=== PATIENT | male | born 1965 | race Caucasian/White ===

== ENCOUNTER 2018-06-15 09:05 | Outpatient (CLI) | payer OTHER ==
--- NOTE | 2018-06-15 10:28 | RAD ---
PA AND LATERAL CHEST XRAY: DATE: 06/15/2018. HISTORY: Bronchitis. Shortness of breath for a couple of years. COMPARISON: None available. FINDINGS: Cardiac silhouette and pulmonary vasculature are within normal limits. There are linear densities se en at the left lung base which could be related to a combination of epicardial fat pad and atelectasi s. Lungs are otherwise clear. Mild degenerative changes are seen in the midthoracic spine. Vascula r calcification is seen in the thoracic aorta. IMPRESSION: Linear area of increased density at the left lung base which is thought to most likely be related to a combination of epicardial fat pad and mild volume loss. However, if there is concern for developin g pneumonia, a followup chest x-ray is recommended. POS: MILLIE
== END 2018-06-15 09:06 | disposition home or self-care (01) ==
LOC: BICRAD 09:05
PROVIDERS: ATTEND Internal Medicine
DX: J40 Bronchitis, not specified as acute or chronic (principal)
CPT/HCPCS: 71046

== ENCOUNTER 2019-12-10 11:24 | Emergency (ER) | payer SELFPAY ==
[2019-12-10] MEDS ORDERED: HYDROcodone/Acetaminophen 7.5/325 mg Tablet ONE (11:42)
--- NOTE | 2019-12-10 13:26 | RAD ---
LEFT HAND THREE VIEWS: History: Hand pain. Injury. FINDINGS: Carpals appear intact. There is a predominately transverse but mildly comminuted fracture involving the proximal shaft of th e first metacarpal with mild displacement. No other definite fractures seen. There are degenerative joint changes. IMPRESSION: Acute fracture involving the proximal phalanx of the thumb. POS: [facility]
--- NOTE | 2019-12-10 13:28 | RAD ---
RIGHT HAND THREE VIEWS: History: Injury FINDINGS: Deformity of the distal radius suggest old healed fracture. Degenerative changes in the carpals and at the carpal metacarpal joints. There is an acute mildly displaced fracture involving the base of the first metacarpal. Deformity of the fifth metacarpal indicates old healed fracture. Degenerative changes in the MCP and IP joints. IMPRESSION: 1. Evidence of acute mildly displaced fracture involving the base of the first metacarpal. 2. Deformity in the distal radius and fifth metacarpal are consistent with old healed fractures. POS: AGW
--- NOTE | 2019-12-10 13:31 | RAD ---
LEFT SHOULDER THREE VIEWS: History: Injury FINDINGS: No evidence of fracture or dislocation. AC joint normally aligned. IMPRESSION: No acute abnormality identified. POS: [facility]
== END 2019-12-10 15:01 | disposition home or self-care (01) ==
LOC: ERS 11:24
DX: S62.231A Other displaced fracture of base of first metacarpal bone, right hand, initial encounter for closed fracture (principal); S62.242A Displaced fracture of shaft of first metacarpal bone, left hand, initial encounter for closed fracture; Z87.891 Personal history of nicotine dependence; V89.2XXA Person injured in unspecified motor-vehicle accident, traffic, initial encounter
CPT/HCPCS: 26600

== ENCOUNTER 2020-01-05 08:34 | Emergency (ER) | payer SELFPAY ==
[2020-01-05 10:20] LABS: ALT (SGPT) 19 U/L (8-55); AST (SGOT) 25 U/L (5-34); Albumin 4.5 g/dL (3.5-5.0); Alkaline Phosphatase 88 U/L (40-110); Anion Gap 13 mmol/L (10-20); BUN (Urea Nitrogen) 12 mg/dL (8.4-25.7); CK (CPK) 699 U/L (30-200); Calc. Creatinine Clearance 0 mL/min (70-130); Calcium 9.4 mg/dL (7.8-10.44); Carbon Dioxide 26 mmol/L (22-29); Chloride 104 mmol/L (98-107); Estimated GFR-MDRD 65; Globulin 2.6 g/dL (2.4-3.5); Glucose 94 mg/dL (70-105); Potassium 3.4 mmol/L (3.5-5.1); Protein, Total 7.1 g/dL (6.0-8.3); Sodium 140 mmol/L (136-145)
--- NOTE | 2020-01-05 10:21 | RAD ---
TWO VIEWS RIGHT HUMEROUS: DATE: 01/05/2020. PROVIDED CLINICAL HISTORY: Pain status post injury. FINDINGS: No evidence for a fracture or other acute osseous abnormality. If there is persistent clinical lui rn, conservative management and followup imaging are advised. IMPRESSION: As above. POS: JONATHAN
--- NOTE | 2020-01-05 10:24 | RAD ---
RIGHT FOREARM 2 VIEWS: HISTORY: Forearm injury. COMPARISON: A 12/10/2019 exam. FINDINGS: A base of metacarpal fracture is again demonstrated. It was present on the previous exam. This is s lightly more displaced. Arthritic changes of the wrist are noted. IMPRESSION: 1. Slight increased displacement of the base of the 1st metacarpal fracture. 2. Old distal radial fracture. POS: JOSEPH
[2020-01-05] MEDS ORDERED: Adacel (T-DAP) 0.5 ML SYRINGE ONE (10:40)
--- NOTE | 2020-01-05 11:32 | CT ---
CT BRAIN: Date: 01/05/2020 PROVIDED CLINICAL HISTORY: Headache. COMPARISON: 01/22/2007. FINDINGS: The ventricular system is normal in size and morphology. There is no evidence for intracranial hemorr bryanna or mass effect. The extracranial soft tissues and osseous structures demonstrate no significant abnormality. Paranasal sinus mucosal disease is partially visualized. IMPRESSION: No evidence for intracranial hemorrhage or mass effect. POS: JONATHAN
--- NOTE | 2020-01-05 13:20 | RAD ---
LEFT HAND 3 VIEWS: Date: 01/05/2020 COMPARISON: 12/10/2019 exam. FINDINGS: The base of the first metacarpal fracture is again identified. There is some developing callus format ion in this area. Fracture appears similar to the previous study. There is some arthritic change at t he wrist level. No signs of any acute fracture. IMPRESSION: No acute injury. POS: [facility]
== END 2020-01-05 12:55 | disposition home or self-care (01) ==
LOC: ERS 08:34
DX: S01.81XA Laceration without foreign body of other part of head, initial encounter (principal); S30.1XXA Contusion of abdominal wall, initial encounter; L03.113 Cellulitis of right upper limb; F15.10 Other stimulant abuse, uncomplicated; S62.232D Other displaced fracture of base of first metacarpal bone, left hand, subsequent encounter for fracture with routine healing; Y04.8XXA Assault by other bodily force, initial encounter
CPT/HCPCS: 70450; 80053; 82550; 90471; 90715; 96360

== ENCOUNTER 2020-01-23 06:33 | Outpatient (CLI) | payer OTHER, SELFPAY ==
[2020-01-23 16:14] LABS: #Basophils 0.1 thou/uL (0.0-0.2); #Eosinphils 0.6 thou/uL (0.0-0.7); #Monocytes 0.5 thou/uL (0.11-0.59); #Neutrophils 4.2 thou/uL (1.40-6.50); %Eosinophils 8.5 % (0.0-10.0); %Lymphocytes 26.8 % (21.0-51.0); %Monocytes 6.7 % (0.0-10.0); Mean Corpuscular HGB CONC 34.1 g/dL (32.0-36.0); Mean Corpuscular Hemoglobin 31.7 pg (27.0-31.0); Mean Platelet Volume 9.3 fL (7.4-10.4); Platelet Count 240 thou/uL (130-400); RBC Distribution Width 12.4 % (11.5-14.5); Red Blood Cell (RBC) Count 4.43 mill/uL (4.70-6.10); White Blood Cell (WBC) Count 7.3 thou/uL (4.8-10.8)
[2020-01-24 14:21] LABS: SARS-CoV-2 MS2 Positive; SARS-CoV-2 N Gene Negative; SARS-CoV-2 S Gene Negative; SARS-CoV-2 orf1ab Negative
== END 2020-01-23 06:34 | disposition home or self-care (01) ==
LOC: LABBT 06:33
PROVIDERS: ATTEND Orthopaedic Surgery Hand Surgery
DX: Z01.812 Encounter for preprocedural laboratory examination (principal); Z11.59 Encounter for screening for other viral diseases; S62.211A Bennett's fracture, right hand, initial encounter for closed fracture
CPT/HCPCS: 85025; 87635; U0003

== ENCOUNTER → 2020-01-26 | Day surgery (SDC) | payer SELFPAY ==
[2020-01-23 13:09] VITALS: BMI 32.5
[~2020-01-26] MED LIST: Bacitracin Zinc Ointment 30 gm TUBE ONE; Bupivacaine PF 0.5% 30 ML VIAL ONE; Dexamethasone 20 MG/5 ML VIAL ONE; EPHEDRINE 25 MG/5 ML SYRINGE ONE; Fentanyl 100 MCG/2 ML VIAL ONE; Ketorolac Tromethamine 30 MG/ML VIAL ONE; Lidocaine 1% PF 5 ML VIAL ONE; Midazolam HCl 2 mg/2 ml Vial ONE; Ondansetron PF 4 MG/2 ML Vial ONE; PROPOFOL 200 MG/20 ML VIAL ONE; Sodium Chloride 0.9% 10 ML ONE
--- NOTE | 2020-01-26 11:21 | RAD ---
RIGHT THUMB 3 VIEWS: HISTORY: ORIF right thumb. FINDINGS/IMPRESSION: Three spot fluoroscopic intraoperative images of the right thumb demonstrate changes of metallic hard patten placement in the base of the 1st metacarpal. POS: AH
--- NOTE | 2020-01-28 16:15 | OP ---
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 FINDINGS: Malunion with fracture, callus well established, requiring fragment separation. PROCEDURES PERFORMED: 1. Fragment separation with open treatment of malunion, right thumb metacarpal base 4-part fracture. 2. Open reduction and internal fixation using bone graft, metacarpal fracture/malunion, right. 3. C-arm use and supervision. COMPLICATIONS: None. TOURNIQUET TIME: 100 minutes. ESTIMATED BLOOD LOSS: 10 mL. INJECTABLES: 30 mL of Marcaine. DESCRIPTION OF PROCEDURE: After successful general endotracheal anesthesia, limb was prepped and draped. We outlined the incision using a Alarcon incision to expose the fracture. We exsanguinated the limb, inflated the tourniquet to 250 mmHg pressure, and gave the patient 20 mL of 0.5% Marcaine prior to making incision. Incision was carried through skin and subcutaneous tissue. We followed the interval nerve between the lateral antebrachial cutaneous terminal branches, radial nerve terminal branches, and small cutaneous median nerve branches. Once these were , we then lifted the thenar musculature off the metacarpal, proximal 1/2, leaving a small rim of 2 mm later for closure. We then split the space between the abductor and extensor and visualized the carpometacarpal joint. We opened the carpometacarpal joint capsule, preserving this for later closure. We then saw 3 fragments. We began to separate them because they were completely healed in a malunion position. Once we them, in order to get any type of joint congruity, we had to elevate the articular fragment and the part containing the volar beak from the shaft, which was in two of the fragments. Once we did this, we could restore articular surface as best as possible without any step-off defects. We then filled in with bone graft and the articular surface re-reduced to include the volar beak, which was elevated. We brought the radial side metacarpal base back up to height, preliminary K-wire fixating the area. We then added 2 screws, 1.5 mm, to hold the remaining fragments in place. The joint showed some gap where we placed bone graft, but no appreciable step-off was seen in frontal sagittal plane. The screws were not protruding. We now had 2 K-wires, which were cut flush with the bone using a very small K-wire twisting machine operator and we deflated the tourniquet after the C-arm and pictures were verified with fracture intact. No gross motion was seen in the fracture. We irrigated the joint. We released the tourniquet and obtained hemostasis. We closed the capsule with interrupted 2-0 Vicryl. We replaced the thenar musculature back with the same 2-0 Vicryl interrupted [id number]. Then, we made a subcutaneous closure with a running 2-0 Monocryl that was flat and adequate, so we added Mastisol and Steri-Strips for final layer cover. He got the remaining 10 mL of Marcaine 0.5% without epi after the incision was closed. Bulky dressing was applied along with a sugar-tong splint and the patient left the operating room without evidence of anesthetic or operative complication. Job ID: [id number]
== END ==
LOC: SDC 05:47
PROVIDERS: ATTEND Orthopaedic Surgery Hand Surgery
PROC: 0PSP04Z Reposition Right Metacarpal with Internal Fixation Device, Open Approach (ICD-10-PCS; principal; 2020-01-26)
DX: S62.211A Bennett's fracture, right hand, initial encounter for closed fracture (principal)
CPT/HCPCS: 76000; C1713; J0690; J1100; J1885; J2250; J2405; J2704; J3010; J3490; S0020

== ENCOUNTER 2022-01-16 01:44 | Emergency (ER) | payer SELFPAY ==
[2022-01-16] MEDS ORDERED: CEFAZOLIN 2 GM VIAL ONE (02:21)
[2022-01-16 02:23] LABS: #Basophils 0.1 thou/uL (0.0-0.2); #Eosinphils 0.2 thou/uL (0.0-0.7); #Lymphocytes 1.5 thou/uL (1.20-3.40); #Monocytes 1.3 thou/uL (0.11-0.59); #Neutrophils 12.6 thou/uL (1.40-6.50); %Basophils 0.4 % (0.0-1.0); %Lymphocytes 9.5 % (21.0-51.0); %Monocytes 8.2 % (0.0-10.0); Hemoglobin 15.1 g/dL (14.0-18.0); Mean Corpuscular HGB CONC 34.7 g/dL (32.0-36.0); Mean Corpuscular Hemoglobin 32.5 pg (27.0-31.0); Mean Corpuscular Volume 93.5 fL (78.0-98.0); Mean Platelet Volume 8.5 fL (7.4-10.4); Platelet Count 176 thou/uL (130-400); RBC Distribution Width 12.6 % (11.5-14.5); Red Blood Cell (RBC) Count 4.65 mill/uL (4.70-6.10); White Blood Cell (WBC) Count 15.6 thou/uL (4.8-10.8)
[2022-01-16 02:38] LABS: INR-International Normal Ratio 1.3; PTT 29.3 sec (22.9-36.1); Prothrombin Time 16.8 sec (12.0-14.7)
[2022-01-16 02:43] LABS: ALT (SGPT) 16 U/L (8-55); AST (SGOT) 15 U/L (5-34); Alkaline Phosphatase 71 U/L (40-110); Anion Gap 19 mmol/L (10-20); BUN (Urea Nitrogen) 19 mg/dL (8.4-25.7); Bilirubin, Total 1.3 mg/dL (0.2-1.2); Calc. Creatinine Clearance 0 mL/min (70-130); Calcium 8.7 mg/dL (7.8-10.44); Carbon Dioxide 19 mmol/L (22-29); Chloride 101 mmol/L (98-107); Estimated GFR 65; Globulin 2.6 g/dL (2.4-3.5); Glucose 155 mg/dL (70-105); Potassium 3.5 mmol/L (3.5-5.1); Protein, Total 6.6 g/dL (6.0-8.3); Sodium 135 mmol/L (136-145)
[2022-01-16] MEDS ORDERED: HYDROcodone/Acetaminophen 5/325 mg Tablet ONE (03:43)
== END 2022-01-16 04:15 | disposition home or self-care (01) ==
LOC: ERS 01:44
DX: S91.011A Laceration without foreign body, right ankle, initial encounter (principal); S91.311A Laceration without foreign body, right foot, initial encounter; I95.9 Hypotension, unspecified; X58.XXXA Exposure to other specified factors, initial encounter
CPT/HCPCS: 36415; 80053; 83605; 85025; 85610; 85730; 86850; 86900; 86901; 87040; 96365; J0690

== ENCOUNTER 2022-10-02 13:04 | Emergency (ER) | payer OTHER, SELFPAY ==
[2022-10-02 13:38] LABS: #Basophils 0.1 thou/uL (0.0-0.2); #Eosinphils 0.6 thou/uL (0.0-0.7); #Lymphocytes 2.9 thou/uL (1.20-3.40); #Monocytes 0.7 thou/uL (0.11-0.59); #Neutrophils 4.3 thou/uL (1.40-6.50); %Eosinophils 6.6 % (0.0-10.0); %Lymphocytes 33.5 % (21.0-51.0); %Monocytes 8.7 % (0.0-10.0); %Neutrophils 50.2 % (42.0-75.0); Hemoglobin 16.1 g/dL (14.0-18.0); Mean Corpuscular HGB CONC 34.5 g/dL (32.0-36.0); Mean Corpuscular Hemoglobin 31.9 pg (27.0-31.0); Mean Corpuscular Volume 92.3 fl (78.0-98.0); Mean Platelet Volume 8.9 fL (7.4-10.4); Platelet Count 198 10x3/uL (130-400); RBC Distribution Width 11.8 % (11.5-14.5); Red Blood Cell (RBC) Count 5.06 mill/uL (4.70-6.10); White Blood Cell (WBC) Count 8.5 10x3/uL (4.8-10.8)
[2022-10-02 13:50] LABS: INR-International Normal Ratio 1.3; PTT 30.3 sec (22.9-36.1); Prothrombin Time 16.9 sec (12.0-14.7)
[2022-10-02 14:01] LABS: ALT (SGPT) 16 U/L (8-55); AST (SGOT) 16 U/L (5-34); Albumin 4.4 g/dL (3.5-5.0); Alkaline Phosphatase 68 U/L (40-110); Anion Gap 12 mmol/L (10-20); BUN (Urea Nitrogen) 16 mg/dL (8.4-25.7); Bilirubin, Total 0.6 mg/dL (0.2-1.2); CK (CPK) 118 U/L (30-200); Calc. Creatinine Clearance 0 mL/min (70-130); Calcium 9.4 mg/dL (7.8-10.44); Carbon Dioxide 25 mmol/L (22-29); Chloride 105 mmol/L (98-107); Estimated GFR 69; Globulin 2.8 g/dL (2.4-3.5); Glucose 102 mg/dL (70-105); Lipase 27 U/L (8-78); Potassium 3.7 mmol/L (3.5-5.1); Protein, Total 7.2 g/dL (6.0-8.3); Sodium 138 mmol/L (136-145)
[2022-10-02] MEDS ORDERED: Iopamidol-370 76% 500 ML MDV (1 ML CHARGE) ONE (14:22)
[2022-10-02] MEDS ORDERED: Ketorolac Tromethamine 30 MG/ML VIAL ONE (15:01)
[2022-10-02] MEDS ORDERED: FENTANYL 50 MCG/ML 1 ML VIAL ONE (15:02)
== END 2022-10-02 15:31 | disposition home or self-care (01) ==
LOC: ERS 13:04
DX: S13.4XXA Sprain of ligaments of cervical spine, initial encounter (principal); M54.9 Dorsalgia, unspecified; J44.9 Chronic obstructive pulmonary disease, unspecified; V49.40XA Driver injured in collision with unspecified motor vehicles in traffic accident, initial encounter; Y92.410 Unspecified street and highway as the place of occurrence of the external cause
CPT/HCPCS: 36415; 70450; 71260; 72125; 74177; 80053; 82550; 83690; 85025; 85610; 85730; 86850; 86900; 86901; 96374; 96375; J1885; J3010